=== PATIENT | female | born 2005 | race Caucasian/White ===

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

== ENCOUNTER 2025-03-24 10:20 | Outpatient (CLI) | payer OTHER, SELFPAY ==
--- OUTSIDE RECORDS SUMMARY | 2025-01-27 08:30 | XMS_ITS | Encounter Summary ---
Author Organization Healthcare Address [address] [id number] Care Team Providers Care Poultry Grader Name Role Phone Rick Mae Sam ROQUE Primary Care Provider [phone] Reason for Visit * Reason Comments Routine Visit Feeling well. Has some heartburn. Encounter Details Date Type Department Care Team (Late Contact Info) Description 01/27/2025 8:30 AM EDT Routine Obstetrics & Gynecology [address] [place] [address] Drea Carballo MD [address] [place] [address] 16 weeks gestation of (Primary Dx) Social History Tobacco Use Types Packs/Day Years Used Date Smoking Tobacco: Never Smokeless Tobacco: Never Alcohol Use Standard Drinks/Week Comments Never 0 (1 standard drink = 0.6 oz pur e alcohol) PHQ-2 Answer Date Recorded Patient Health Questionnaire-2 Score 0 01/27/2025 PHQ-9 Answer Date Recorded Patient Health Questionnaire-9 Score 0 01/27/2025 Estimated Date of Delivery Comme nts Yes 07/13/2025 Based on Ultraso und Sex and Gender Information Value Date Recorded Sex Assigned at Not on file Legal Sex Female 8:54 PM EDT Gender Identity Not on file Sexual Orientation Not on file documented as of this encounter Last Filed Vital Signs Vital Sign Reading Time Taken Comments Blood Pressure 95/61 01/27/2025 8:43 AM EDT Pulse 111 01/27/2025 8:43 AM EDT Temperature 36.9 C (98.4 F) 01/27/2025 8:43 AM EDT Respiratory Rate 16 01/27/2025 8:43 AM EDT Oxygen Saturation 98% 01/27/2025 8:43 AM EDT Inhaled Oxygen Concentration - - Weight 64 kg (141 lb 1.5 oz) 01/27/2025 8:43 AM EDT Height 167.6 cm (5' 6 ) 01/27/2025 8:43 AM EDT Body Mass Index 22.77 01/27/2025 8:43 AM EDT documented in this encounter Functional Status * Over the past 2 weeks, how often have you been bothered by any of the following problems? Question Answer Date of Assessment Author Little interest or pleasure in doing things Not at all 01/27/2025 8:45 AM EDT Paulino Mims Feeling down, depressed, or hopeless Not at all 01/27/2025 8:45 AM EDT Paulino Mims Patient Health Questionnaire -2 Score 0 01/27/2025 8:45 AM EDT Paulino Mims * Question Answer Date of Assessment Author Trouble falling or staying a sleep, or sleeping too much Not at all 01/27/2025 8:45 AM EDPaulino Rand Feeling tired or having ashley le energy Not at all 01/27/2025 8:45 AM EDT Paulino Mims Poor appetite or overeating Not at all 01/27/2025 8: 45 AM EDT Paulino Mims Feeling bad about yourself - or that you are a failure or have let yourself or your family down Not at all 01/27/2025 8:45 AM EDT Leonides Mims Trouble concentrating on thi ngs, such as reading the newspaper or watching television Not at all 01/27/2025 8:45 AM EDT Paulino Mims Moving or speaking so slowly that other people could have noticed? Or the opposite - being so fidgety or restless that you have been moving around a lot more than usual. Not at all 01/27/2025 8:45 AM EDPaulino Rand Thoughts that you would be b kennedi off or hurting yourself in some way Not at all 01/27/2025 8:45 AM EDT Paulino Mims Patient Health Questionnaire -9 Score 0 01/27/2025 8:45 AM EDT Paulino Mims * How difficult have these problems made it for you to do your work, take care of things at home, or get along with other people? Answer Date of Assessment Author Not difficult at all 01/27/2025 8:45 AM EDT Paulino Mckee documented as of this encounter Miscellaneous Notes * Progress Notes - Drea Carballo MD - 01/27/2025 8:30 AM EDT Subjective Chief Complaint Patient presents with Routine Visit Feeling well. Has some heartburn. Ana Laura Ambrocio is a 19 y.o. at 16w1d with a working estimated date of delivery of 07/13/2025, by Ultrasound who presents for a routine visit. She denies vaginal bleeding, leakage of fluid, or contractions. No movement yet. 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 Diagnoses and all orders for this visit: 16 weeks gestation of (Primary) Continue vitamin and ASA. Labs reviewed - rh neg, rubella nonimmune NIPT low risk female Discussed tums for GERD Desires delayed cord clamping until cord stops pulsating if able Order placed for anatomy scan at 20 weeks. Follow up in 4 weeks for a routine visit. Time Spent: I personally spent a total of 23 minutes on this encounter. This time includes face to face with patient, counseling and discussion and/or coordination of care. documented in this encounter Plan of Treatment Upcoming Encounters Date Type Department Care Team (Late st Contact Info) Description 04/21/2025 8:15 AM EST Routine [facility] [address] [place] [address] Drea Carballo MD [address] [place] [address] documented as of this encounter Goals Goal Patient Goal Type Associated Problems Recent Progress Patient-Stated? Author Delayed Care Plan CPM S24 PP LABOR (OBSTETRICS) No Open Scheduling, Background documented as of this encounter Visit Diagnoses Diagnosis 16 weeks gestation of - Primary documented in this encounter Additional Health Concerns Active Problems Noted Date Diagnosed Date CPM S24 PP LABOR (OBSTETRICS) 11/24/2024 Assessment Noted Time PHQ-9 Depression Total Score: 0 01/28/20 25 8:45 AM EDT A fall risk assessment has been complete d for the patient 01/27/2025 8:45 AM EDT A Body Mass Index follow-up plan has been documented for the patient 01/27/2025 9:26 AM EDT documented as of this encounter Care Teams Poultry Grader Relationship Specialty Start Date End Date Mae Cabrera PA [address] [place] [address] PCP - General 04/15/24 documented as of this encounter
--- OUTSIDE RECORDS SUMMARY | 2025-02-24 08:00 | XMS_ITS | Encounter Summary ---
Author Organization [facility] Address [address] [place] [address] Care Team Providers Care Bookkeeping Service Sales Agent Name Role Phone Mae Cabrera Primary Care Provider Reason for Visit * Imaging (Routine) - Closed Specialty Diagnoses / Procedures Referred By Cara connor Referred To Contact Diagnoses 12 weeks gestation of Procedures OB US 14+ Weeks Anatomy Scan OB US Detail Anatomy Bianca Moya, POOL COORDINATOR, CNM [address] [facility] [address] [place] [address] Phone: tel: fax: EXT External Clinic [address] [place] [address] Referral ID Status Reason Start Date Expiration Date Visits Re quested Visits Authorized [id number] Closed 12/30/2024 07/01/2026 1 1 Encounter Details Date Type Department Care Team (Latest Contact Info) Description 02/24/2025 8:00 AM EDT - 02/24/2025 11:59 PM EDT Hospital Encounter [facility] [place] [facility] [address] [place] [address] 12 weeks gestation of Discharge Disposition: Home or Self Care Social History Tobacco Use Types Packs/Day Years Used Date Smoking Tobacco: Never Smokeless Tobacco: Never Alcohol Use Standard Drinks/Week Comments Never 0 (1 standard drink = 0.6 oz pur e alcohol) PHQ-2 Answer Date Recorded Patient Health Questionnaire-2 Score 0 02/24/2025 PHQ-9 Answer Date Recorded Patient Health Questionnaire-9 Score 0 01/27/2025 Estimated Date of Delivery Comme nts Yes 07/13/2025 Based on Ultraso und Sex and Gender Information Value Date Recorded Sex Assigned at Not on file Legal Sex Female 8:54 PM EDT Gender Identity Not on file Sexual Orientation Not on file documented as of this encounter Functional Status * Over the past 2 weeks, how often have you been bothered by any of the following problems? Question Answer Date of Assessment Author Little interest or pleasure in doing things Not at all 02/24/2025 9:08 AM EDT Marian Gomez Feeling down, depressed, or hopeless Not at all 02/24/2025 9:08 AM EDT Marian Gomez Patient Health Questionnaire-2 Score 0 02/24/2025 9:08 AM EDT Sheryl Gomez * How difficult have these problems made it for you to do your work, take care of things at home, or get along with other people? Answer Date of Assessment Author Not difficult at all 02/24/2025 9:08 AM EDT Sheryl Clark documented as of this encounter Medications at Time of Discharge aspirin 81 MG EC tabletIndications:Hi story of recurrent miscarriages Take 1 tablet by mouth daily. 30 tablet 11 11/24/2024 ondansetron ODT (Zofran-ODT) 8 MG disintegrating tablet Dissolve 1 tablet on the tongue every 8 hours as needed for nausea or vomiting. 20 tablet 3 11/24/2024 pyridoxine 100 MG tablet Take 1 tablet by mouth daily. documented as of this encounter Plan of Treatment Upcoming Encounters Date Type Department Care Team (Late st Contact Info) Description 04/21/2025 8:15 AM EST Routine [facility] [address] [place] [address] Drea Carballo MD [address] [place] [address] documented as of this encounter Goals Goal Patient Goal Type Associated Problems Recent Progress Patient-Stated? Author Delayed Care Plan CPM S24 PP LABOR (OBSTETRICS) No Open Scheduling, Background documented as of this encounter Procedures Procedure Name Priority Date/Time Associated Diagnosis Comments OB US 14+ WEEKS ANATOMY SCAN Routine 02/24/2025 8:44 AM EDT 12 weeks gestation of documented in this encounter Results * OB US 14+ Weeks Anatomy Scan (02/24/2025 8:44 AM EDT) Anatomical Region Laterality Modality Body Ultrasound 02/24/2025 8:07 AM EDT Impressions 02/24/2025 11:14 PM EDT The OB Ultrasound you requested has been resulted. Please navigate to the Imaging tab in [employer] for review. This message has been generated by the interface. Narrative Procedure Note Maddy Obregon MD - 02/24/2025 IMPRESSION: The OB Ultrasound you requested has been resulted. Please navigate to theImaging tab in [employer] for review. This message has been generated by theinterface. us Bianca Moya APRN, CNM [facility] OB US PROCEDURES Fi nal Result documented in this encounter Visit Diagnoses Diagnosis 12 weeks gestation of documented in this encounter Additional Health Concerns Active Problems Noted Date Diagnosed Date CPM S24 PP LABOR (OBSTETRICS) 11/24/2024 Assessment Noted Time PHQ-9 Depression Total Score: 0 01/28/20 25 8:45 AM EDT A fall risk assessment has been complete d for the patient 02/24/2025 9:08 AM EDT A Body Mass Index follow-up plan has been documented for the patient 02/24/2025 9:28 AM EDT documented as of this encounter Care Teams Bookkeeping Service Sales Agent Relationship Specialty Start Date End Date Mae Cabrera PA [address] [place] [address] PCP - General 04/15/24 documented as of this encounter
--- OUTSIDE RECORDS SUMMARY | 2025-02-24 08:00 | XMS_ITS | Encounter Summary ---
Author Organization Healthcare Address [address] [id number] Care Team Providers Care Liquor Establishment Manager Name Role Phone Mae Cabrera Primary Care Provider [phone] Reason for Visit * Reason Comments Routine Visit No concerns +FM, No CTX , No cramping, No LOF , No VB Encounter Details Date Type Department Care Team (Late st Contact Info) Description 02/24/2025 8:00 AM EDT Routine Obstetrics & Gynecology [address] [place] [address] Bianca Moya, SUPPLY TEACHER, CNM [address] [facility] [address] [place] [address] 20 weeks gestation of (Primary Dx) Social History [...] Sign Reading Time Taken Comments Blood Pressure 107/65 02/24/2025 9:07 AM EDT Pulse 85 02/24/2025 9:07 AM EDT Temperature 36.7 C (98 F) 02/24/2025 9:07 AM EDT Respiratory Rate - - Oxygen Saturation 98% 02/24/2025 9:07 AM EDT Inhaled Oxygen Concentration - - Weight 63.1 kg (139 lb 1.8 oz) 02/24/2025 9:07 A M EDT Height - - Body Mass Index 22.45 01/27/2025 8:43 AM EDT documented in this [...] Sheryl Clark documented as of this encounter Miscellaneous Notes * Progress Notes - Bianca Moya, SUPPLY TEACHER, CNM - 02/24/2025 8:00 AM EDT Subjective Chief Complaint Patient presents with Routine Visit No concerns +FM, No CTX , No cramping, No LOF , No VB Ana Laura Ambrocio is a 19 y.o. at 20w1d with a working estimated date of delivery of 07/13/2025, by Ultrasound who presents for a routine visit. She denies vaginal bleeding, leakage of fluid, or contractions. No movement yet. Doing well, battling allergies. Usually takes Claritin or zyrtec but has not had any due to . Questions about Rhogam Anatomy prelim US today normal per US tech - no printed report available due to printer being down. 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 Continue vitamin and ASA. Labs reviewed - rh neg, rubella nonimmune NIPT low risk female Rhogam at 28 weeks. Discussed allergy meds and safety. Reviewed education classes Desires delayed cord clamping until cord stops pulsating if able Follow up in 4 weeks for a routine visit. documented in this encounter Plan of Treatment Upcoming Encounters Date Type Department Care Team (Late st Contact Info) Description 04/21/2025 8:15 AM EST Routine [facility] [address] [place] [address] Drea Carballo MD [address] [place] [address] documented as of this encounter Goals Goal Patient Goal Type Associated Problems Recent Progress Patient-Stated? Author Delayed Care Plan CPM S24 PP LABOR (OBSTETRICS) No Open Scheduling, Background documented as of this encounter Visit Diagnoses Diagnosis 20 weeks gestation of - Primary documented in [...] documented as of this encounter Care Teams Liquor Establishment Manager Relationship Specialty Start Date End Date Mae Cabrera PA [address] [place] [address] PCP - General 04/15/24 documented as of this encounter
--- OUTSIDE RECORDS SUMMARY | 2025-03-24 08:15 | XMS_ITS | Encounter Summary ---
Author Organization Healthcare Address [address] [id number] Care Team Providers Care Librarian Name Role Phone RickMae Sam ROQUE Primary Care Provider [phone] Reason for Visit * Reason Comments Routine Visit Presents today fo r visit. Encounter Details Date Type Department Care Team (Late Contact Info) Description 03/24/2025 8:15 AM EDT Routine Obstetrics & Gynecology [address] [place] [address] Drea Carballo MD [address] [place] [address] 24 weeks gestation of (Primary Dx) Social History Tobacco Use Types Packs/Day Years Used Date Smoking Tobacco: Never Smokeless Tobacco: Never Alcohol Use Standard Drinks/Week Comments Never 0 (1 standard drink = 0.6 oz pur e alcohol) PHQ-2 Answer Date Recorded Patient Health Questionnaire-2 Score 0 03/24/2025 PHQ-9 Answer Date Recorded Patient Health Questionnaire-9 Score 0 03/24/2025 Estimated Date of Delivery Comme nts Yes 07/13/2025 Based on Ultraso und Sex and Gender Information Value Date Recorded Sex Assigned at Not on file Legal Sex Female 8:54 PM EDT Gender Identity Not on file Sexual Orientation Not on file documented as of this encounter Last Filed Vital Signs Vital Sign Reading Time Taken Comments Blood Pressure 108/70 03/24/2025 8:17 AM EDT Pulse 90 03/24/2025 8:17 AM EDT Temperature 36.6 C (97.9 F) 03/24/2025 8:17 AM EDT Respiratory Rate 16 03/24/2025 8:17 AM EDT Oxygen Saturation 100% 03/24/2025 8:17 AM EDT Inhaled Oxygen Concentration - - Weight 64 kg (141 lb 1.5 oz) 03/24/2025 8:17 AM EDT Height 167.6 cm (5' 6 ) 03/24/2025 8:17 AM EDT Body Mass Index 22.77 03/24/2025 8:17 AM EDT documented in this encounter Functional Status * Over the past 2 weeks, how often have you been bothered by any of the following problems? Question Answer Date of Assessment Author Little interest or pleasure in doing things Not at all 03/24/2025 8:19 AM EDT Paulino Mims Feeling down, depressed, or hopeless Not at all 03/24/2025 8:19 AM EDT Paulino Mims Patient Health Questionnaire -2 Score 0 03/24/2025 8:19 AM EDT Paulino Mims * Question Answer Date of Assessment Author Trouble falling or staying a sleep, or sleeping too much Not at all 03/24/2025 8:19 AM EDPaulino Rand Feeling tired or having ashley le energy Not at all 03/24/2025 8:19 AM EDT Paulino Mims Poor appetite or overeating Not at all 03/24/2025 8: 19 AM EDT Paulino Mims Feeling bad about yourself - or that you are a failure or have let yourself or your family down Not at all 03/24/2025 8:19 AM EDT Leonides Mims Trouble concentrating on thi ngs, such as reading the newspaper or watching television Not at all 03/24/2025 8:19 AM EDT Paulino Mims Moving or speaking so slowly that other people could have noticed? Or the opposite - being so fidgety or restless that you have been moving around a lot more than usual. Not at all 03/24/2025 8:19 AM EDT Paulino Mims Thoughts that you would be b kennedi off or hurting yourself in some way Not at all 03/24/2025 8:19 AM Paulino Sloan Patient Health Questionnaire -9 Score 0 03/24/2025 8:19 AM EDT Paulino Mims * How difficult have these problems made it for you to do your work, take care of things at home, or get along with other people? Answer Date of Assessment Author Not difficult at all 03/24/2025 8:19 AM Paulino Noble * How difficult have these problems made it for you to do your work, take care of things at home, or get along with other people? Answer Date of Assessment Author Not difficult at all 03/24/2025 8:19 AM JUAN FRANCISCOT Paulino Mckee documented as of this encounter Miscellaneous Notes * Progress Notes - Drea Carballo MD - 03/24/2025 8:15 AM EDT Subjective Chief Complaint Patient presents with Routine Visit Presents today for visit. Ana Laura Ambrocio is a 19 y.o. at 24w1d with a working estimated date of delivery of 07/13/2025, by Ultrasound who presents for a routine visit. She denies vaginal bleeding, leakage of fluid, or contractions. Endorses movement. Is having some left sided mouth pain for past 3-4 days - thought tooth pain but went to dentist and all normal. Does have allergies - not taking medication. No fevers. 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 Labs reviewed Discussed okay for allergy medication like claritin, zyrtec, Singulair. Discussed to see PCP Glucola, Tdap, and Rhogam at 28 weeks. Glucola given today Declines flu shot Follow up in 4 weeks for a routine visit. documented in this encounter Plan of Treatment Upcoming Encounters Date Type Department Care Team (Late st Contact Info) Description 04/21/2025 8:15 AM EST Routine [facility] [address] [place] [address] Drea Carballo MD [address] [place] [address] documented as of this encounter Goals Goal Patient Goal Type Associated Problems Recent Progress Patient-Stated? Author Delayed Care Plan CPM S24 PP LABOR (OBSTETRICS) No Open Scheduling, Background documented as of this encounter Visit Diagnoses Diagnosis 24 weeks gestation of - Primary documented in this encounter Additional Health Concerns Active Problems Noted Date Diagnosed Date CPM S24 PP LABOR (OBSTETRICS) 11/24/2024 Assessment Noted Time PHQ-9 Depression Total Score: 0 03/24/20 25 8:19 AM EDT A fall risk assessment has been complete d for the patient 03/24/2025 8:19 AM EDT A Body Mass Index follow-up plan has been documented for the patient 03/24/2025 8:58 AM EDT documented as of this encounter Care Teams Librarian Relationship Specialty Start Date End Date Mae Cabrera PA [address] [place] [address] PCP - General 04/15/24 documented as of this encounter
[2025-03-24 15:59] LABS: Coronavirus 19, PCR Not Detected (NotDetected); Influenza A, PCR Not Detected (NotDetected); Influenza B, PCR Not Detected (NotDetected)
--- OUTSIDE RECORDS SUMMARY | 2025-03-25 02:52 | XMS_ITS | Encounter Summary ---
Author Organization Healthcare Address [address] [id number] Care Team Providers Care Stenographer Print Shop Name Role Phone RickMae Sam ROQUE Primary Care Provider [phone] Encounter Details Date Type Department Care Team (Latest Contact Info) Description 03/17/2025 Travel Social History Tobacco Use Types Packs/Day Years [...] on file documented as of this encounter Plan of Treatment Upcoming Encounters Date Type Department Care Team (Late st Contact Info) Description 04/21/2025 8:15 AM EST Routine Obstetrics [facility] Gynecology [address] [place] [address] Drea Carballo MD [address] [place] [address] documented as of this encounter Goals Goal Patient Goal Type Associated Problems Recent Progress Patient-Stated? Author Delayed Care Plan CPM S24 PP LABOR (OBSTETRICS) No Open Scheduling, Background documented as of this encounter Visit Diagnoses Not on filedocumented in this encounter Additional Health Concerns Active [...] documented as of this encounter Care Teams Stenographer Print Shop Relationship Specialty Start Date End Date Mae Cabrera PA [address] [place] [address] PCP - General 04/15/24 documented as of this encounter
--- OUTSIDE RECORDS SUMMARY | 2025-03-25 02:52 | XMS_ITS | Clinical Summary ---
Author Organization [facility] Address [address] [id number] Care Team Providers Care Medical Billing Specialist Name Role Phone RickMae Sam ROQUE Primary Care Provider [phone] Allergies Active Allergy Reactions Criticality Noted Date Comments Amoxicillin Anaphylaxis High 04/15/2024 Azithromycin Anaphylaxis High 11/20/2023 Cefdinir Anaphylaxis High 11/20/2023 Clindamycin Hives Medium 11/20/2023 Penicillins Anaphylaxis High 11/20/2023 Sulfa Drugs Hives Medium 04/15/2024 Medications pyridoxine 100 MG tablet Take 1 tablet by mouth daily. Active ondansetron ODT (Zofran-ODT) 8 MG disintegrating tablet Dissolve 1 tablet on the tongue every 8 hours as needed for nausea or vomiting. 20 tablet 3 5 Active aspirin 81 MG EC tabletIndications:H istory of recurrent miscarriages Take 1 tablet by mouth daily. 30 tablet 11 5 Active Active Problems Problem Noted Date Diagnosed Date 24 weeks gestation of 11/24/2024 Assessment & Plan (11/24/2024 3:17 PM EDT): Orders: US Pelvis Transvaginal; Future Urine Culture Type and Screen Treponema Pallidum (Syphilis) Antibodies with Reflex to RPR and RPR Titer (Those with NO known Syphilis) Rubella Antibody IgG POCT Urine POCT Urinalysis Dipstick Neisseria gonorrhea DNA by PCR HIV 1 & 2 Antibody/Antigen Screen w/Reflex to HIV 1/2 Differentiation Hepatitis C Antibody w/Reflex to HCV Quant PCR Hepatitis B Surface Antigen Drug Abuse Screen, Urine Chlamydia trachomatis DNA by PCR CBC W/O Differential OB US Nuchal Translucency; Future promethazine (Phenergan) 12.5 MG tablet; Take 1 tablet by mouth every 4 hours. 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 Estimated Date of Delivery Comme nts Yes 07/13/2025 Based on Ultraso und Encounters Date Type Department Care Team Description 03/24/2025 8:15 AM EDT Routine Obstetrics & Gynecology [address] [place] [address] Drea Carballo MD 24 weeks gestation of (Primary Dx) 03/24/2025 Travel 03/21/2025 Telephone Obstetrics & Gynecology [address] [place] [address] Drea Carballo MD HCN Clinical Concern/Question (Documentation ) 03/17/2025 Travel 02/24/2025 8:00 AM EDT Routine Obstetrics & Gynecology [address] [place] [address] Bianca Moya, DAMON, CNM 20 weeks gestation of (Primary Dx) 02/24/2025 8:00 AM EDT - 02/24/2025 11:59 PM EDT Hospital Encounter [facility] [address] [place] [address] 12 weeks gestation of Discharge Disposition: Home or Self Care 02/24/2025 Travel 02/23/2025 Travel 01/27/2025 8:30 AM EDT Routine Obstetrics & Gynecology [address] [place] [address] Drea Carballo MD 16 weeks gestation of (Primary Dx) 01/27/2025 Travel 01/20/2025 Travel 01/05/2025 Results Follow-Up Obstetrics & Gynecology [address] [place] [address] Bianca Moya APRN, CNM 12/30/2024 8:40 AM EDT Routine Obstetrics & Gynecology [address] [place] [address] Bianca Moya APRN, CNM 12 weeks gestation of (Primary Dx); Encounter for supervision of other normal , first trimester 12/30/2024 8:12 AM EDT - 12/30/2024 11:59 PM EDT Hospital Encounter [facility] [address] [place] [address] state, incidental Discharge Disposition: Home or Self Care 12/30/2024 Travel 12/29/2024 Travel 12/29/2024 Telephone Obstetrics & Gynecology [address] [place] [address] Bianca Moya APRN, CNM from Last 3 Months Family History Medical [...] Mass Index 22.77 03/24/2025 8:17 AM EDT Plan of Treatment Upcoming Encounters Date Type Department Care Team (Late st Contact Info) Description 04/21/2025 8:15 AM EST Routine Obstetrics & Gynecology [address] [place] [address] Drea Carballo MD [address] [place] [address] Health Maintenance Due Date Last Done Comments [facility]-/Child/Adol SDOH Screenings 2005 Fluoride Varnish 01/15/2006 [facility]-Varicella Vaccines (2 of 2 - 2-dose childhood series) 2009 11/18/2006 [facility]-DTaP,Tdap,and Td Vaccines (6 - Tdap) 2016 07/12/2009, 11/18/2006, 2005, Additional history exists [facility]-Hepatitis A Vaccines (2 of 2 - 2-dose series) 10/12/2018 04/13/2018 HPV Vaccines (1 - 3-dose series) 2020 [facility]- SDOH Screenings 2023 [facility]-Adult SDOH Screenings 2023 [facility]-Pneumococcal Vaccine: Pediatrics (0 to 5 Years) and At-Risk Patients (6 to 49 Years) (1 of 2 - PCV) 2024 07/12/2009, 11/18/2006, 2005, Additional history exists AGH-RSHEX-61 Vaccine (1 - season) 2025 [facility]-Influenza Vaccine (#1) 2025 [facility]-RSV Vaccine: 60+ Years or (1 - Risk 1-dose series) 05/18/2025 [facility]-Chlamydia and Gonorrhea Screening 11/24/2025 11/24/2024, 11/24/2024 [facility]-Depression Screening 03/24/2026 03/24/2025, 02/2025 [facility]-Zoster Vaccines (1 of 2) 2055 11/18/2006 [facility]-HIB Vaccines Completed 11/18/2006, , 2005, Additional history exists [facility]-Hepatitis B Vaccines Completed 007, 2005, 2005 [facility]-IPV Vaccines Completed 07/12/2009, , 2005, Additional history exists [facility]-HIV Screening Completed 11/24/2024 [facility]-Hepatitis C Screening Completed 11/24/2024 [facility]-Rotavirus Vaccines Aged Out No lo nger eligible based on patient's age to complete this topic Goals Goal Patient Goal Type Associated Problems Recent Progress Patient-Stated? Author Delayed Care Plan CPM S24 PP LABOR (OBSTETRICS) No Open Scheduling, Background Procedures Procedure Name Priority Date/Time Associated Diagnosis Comments OB US 14+ WEEKS ANATOMY SCAN Routine 02/24/2025 8:44 AM EDT 12 weeks gestation of PANORAMA TEST Routine 9:44 AM EDT Encounter for supervision of other normal , first trimester HORIZON 14 (GARCES-ETHNIC STANDARD) Routine 12/30/2024 9:44 AM EDT Encounter for supervision of other normal , first trimester OB US NUCHAL TRANSLUCENCY Routine 12/30/2024 8:38 AM EDT state, incidental HEPATITIS C ANTIBODY W/REFLEX TO HCV QUANT PCR Routine 11/24/2024 2:59 PM EDT state, incidental HIV 1/2 ANTIBODY/ANTIGEN SCREEN WITH REFLEX TO HIV I/II DIFFERENTIATION Routine 11/24/2024 2:59 PM EDT state, incidental CHLAMYDIA TRACHOMATIS DNA BY PCR Routine 11/24/2024 2:59 PM EDT state, incidental from Last 3 Months or Most Recently Relevant to Health Maintenance Results * OB US 14+ Weeks Anatomy Scan (02/24/2025 8:44 AM EDT) Anatomical Region Laterality Modality Body Ultrasound 02/24/2025 8:07 AM EDT Impressions 02/24/2025 11:14 PM EDT The OB Ultrasound you requested has been resulted. Please navigate to the Imaging tab in [employer] for review. This message has been generated by the interface. Narrative Procedure Note Maddy Obregon MD - 02/24/2025 IMPRESSION: The OB Ultrasound you requested has been resulted. Please navigate to theImaging tab in [employer] for review. This message has been generated by theinterface. us Bianca Moya APRN, CNM IMJoseph OB US PROCEDURES Fi nal Result * Horizon 14 (Garces-Ethnic Standard) (12/30/2024 9:44 AM EDT) REPORT SUMMARY Negative 01/06/2025 5:48 PM EDT [facility] Comment:Negative for 14 out of 14 diseases. ALPHA-THALASSEMIA Negative 025 5:48 PM EDT [facility] BETA-HEMOGLOBINOP ATHIES Negative 01/06/2025 5:48 PM EDT [facility] AYAN DISEASE Negative 5 5:48 PM EDT [facility] CYSTIC FIBROSIS Negative 5:48 PM EDT [facility] DUCHENNE/COELLO MUSCULAR DYSTROPHY Negative 01/06/2025 5:48 PM EDT [facility] FAMILIAL DYSAUTONOMIA Negative 01/06/2025 5:48 PM EDT [facility] FRAGILE X SYNDROME Negative 01/06/2025 5:48 PM EDT [facility] Comment: NEGATIVE Fragile X Syndrome (X-linked) results 30 and 30 CGG repeats were detected in the FMR1 genes. GALACTOSEMIA Negative 01/06/2025 5:48 PM EDT [facility] GAUCHER DISEASE Negative 5:48 PM EDT [facility] MEDIUM CHAIN ACYL-COA DEHYDROGENASE DEFICIENCY Negative 01/06/2025 5:48 PM EDT [facility] POLYCYSTIC KIDNEY DISEASE AUTOSOMAL RECESSIVE Negative 01/06/2025 5:48 PM EDT [facility] GQMAK-PSPQY-ZLWTA SYNDROME Negative 01/06/2025 5:48 PM EDT [facility] SPINAL MUSCULAR ATROPHY Negative 01/06/2025 5:48 PM EDT [facility] Comment: NEGATIVE Spinal Muscular Atrophy (SMA) Results SMN1: Two copies; g.[id number]>G: absent; the absence of the g.95049P>G variant decreases the chance to be a silent (2+0) carrier. EMIGDIO-SACHS DISEASE Negative 025 5:48 PM EDT [facility] PANEL NOTES See Notes 01/06/2025 5:48 PM EDT [facility] REPORT NOTE See Notes 01/06/2025 5:48 PM EDT [facility] FOOTNOTES See Notes 01/06/2025 5:48 PM EDT [facility] Comment: Please see the attached PDF for information regarding Conditions, Methodology, Disclaimers, and further information. Test performed by [employer]. : [address] [facility], [address], [address], [place] [address] CLIA ID #[id number] CLIA Molding Supervisor: Amy Peck, Ph.D., [facility] Blood Venous blood specimen / Unknown Venipuncture / Unknown 12/30/2024 9:44 AM EDT 12/30/2024 9:45 AM EDT us Bianca Shauna Moya CONCRETE PLANT LABORER, CNM [facility] ORDERABLES Final Result [facility] [address] [place] [address], * PANORAOH TEST (12/30/2024 9:44 AM EDT) REPORT SUMMARY LOW RISK 01/05/2025 7:29 AM EDT [facility] Comment:LOW RISK REPORT NOTE See Notes 01/05/2025 7:29 AM EDT [facility] SEX OF FETUS Female 2024 7:29 AM EDT [facility] FRACTION2 17.3% 7:29 AM EDT [facility] TRISOMY 21 RESULT TEXT Low Risk 01/05/2025 7:29 AM EDT [facility] TRISOMY 21 AGE-BASED RISK TEXT 06/16,068 (0.09%) 01/05/2025 7:29 AM EDT [facility] TRISOMY 21 RISK SCORE TEXT <1/10,000 (<0.01%) 01/05/2025 7:29 AM EDT [facility] TRISOMY 18 RESULT TEXT Low Risk 01/05/2025 7:29 AM EDT [facility] TRISOMY 18 AGE-BASED RISK TEXT 2,484 (0.04%) 01/05/2025 7:29 AM EDT [facility] TRISOMY 18 RISK SCORE TEXT <1/10,000 (<0.01%) 01/05/2025 7:29 AM EDT [facility] TRISOMY 13 RESULT TEXT Low Risk 01/05/2025 7:29 AM EDT [facility] TRISOMY 13 AGE-BASED RISK TEXT 17,826 (0.01%) 01/05/2025 7:29 AM EDT [facility] TRISOMY 13 RISK SCORE TEXT <1/10,000 (<0.01%) 01/05/2025 7:29 AM EDT [facility] MONOSOMY X RESULT TEXT Low Risk 01/05/2025 7:29 AM EDT [facility] MONOSOMY X AGE-BASED RISK TEXT 1255 (0.39%) 01/05/2025 7:29 AM EDT [facility] MONOSOMY X RISK SCORE TEXT <1/10,000 (<0.01%) 01/05/2025 7:29 AM EDT [facility] TRIPLOIDY RESULT TEXT Low Risk 7:29 AM EDT [facility] 22Q11.2 DELETION SYNDROME RESULT TEXT Low Risk 01/05/2025 7:29 AM EDT [facility] 22Q11.2 DELETION SYNDROME POPULATION-BASED RISK TEXT 12,000 01/05/2025 7:29 AM EDT [facility] 22Q11.2 DELETION SYNDROME RISK SCORE TEXT 1201/05/2025 7:29 AM EDT [facility] FOOTNOTES See Notes 01/05/2025 7:29 AM EDT [facility] Comment: Testing Methodology DNA isolated from maternal blood, which contains placental DNA, is amplified at specific loci using a targeted PCR assay and is sequenced using a high- throughput sequencer. fraction is determined using a proprietary algorithm incorporating data from single nucleotide polymorphism-based (SNP-based) next-generation sequencing [Madhu E et al. Obstet Gynecol. 2014 Jan;124(2 Pt 1):210-8]. If there is sufficient fraction, sequencing data is analyzed using a proprietary SNP- based algorithm to determine the copy number for chromosomes 13, 18, 21, X and Y. If ordered, specific microdeletions will be evaluated using similar methodology [Meagan GROVER et al. Am J Obstet Gynecol. 2015 Aug;212(3):332.e1-9]. If the fraction is insufficient, an additional algorithm to determine whether there is an increased risk for triploidy, trisomy 18, and trisomy 13 may be utilized, known as fraction based risk assessment (FFBR) [Dharmesh et al. Ultrasound Obstet Gynecol 2019; 53:73-79]. If ordered on a vanishing twin , a proprietary analysis will be performed to differentiate between the viable/living fetus and the vanished fetus to allow for risk assessment of copy number of chromosomes 13,18, 21, X, Y, and specific microdeletions in the viable/living twin using the above described SNP- based algorithm. If ordered, and patient is RHD negative by genotype, RHD status will be evaluated using a proprietary algorithm if fraction is sufficient [Dima Hurst et al. Obstet Gynecol 2023;145:1?7]. However, some samples will not produce a result due to failure to meet the necessary quality thresholds. This test has been validated on women with a jerome, twin, vanishing twin, or egg donor of at least nine weeks gestation. A result will not be available for higher order multiples and multiple gestation pregnancies with an egg donor or surrogate, or bone marrow transplant recipients. Complete test panel is not available for twin gestations and pregnancies achieved with an egg donor or surrogate. For twin pregnancies with a fraction value below the threshold for analysis, a sum of the fractions for both twins will be reported. As this assay is a screening test and not diagnostic, false positives and false negatives can occur. High risk test results need diagnostic confirmation by alternative testing methods. Low risk results do not fully exclude the diagnosis of any of the syndromes nor do they exclude the possibility of other chromosomal abnormalities or defects, which are not a part of this test. Potential sources of inaccurate results include, but are not limited to, mosaicism, low fraction, limitations of current diagnostic techniques, or misidentification of samples. This test will not identify all deletions associated with each microdeletion syndrome. This test has been validated for deletions ?0.5 Mb within the 22q11.2 A-D region. This test has been validated on full region deletions only for 1p36 deletion syndrome, Cri-du-chat syndrome, Prader Willi syndrome and Angelman syndrome and may be unable to detect smaller deletions. Microdeletion risk score may be dependent upon fraction, as deletions on the maternally inherited copy are difficult to identify at lower fractions. Test results should always be interpreted by a clinician in the context of clinical and familial data with the availability of genetic counseling when appropriate. Disclaimers The extraction, library preparation, and sequencing of this test were performed by [employer] [id number] [place] [address] [address], [place] [address] (CLIA ID [id number]). The data analysis and reporting of this test were performed by [employer] [address] [facility] [facility] [address], [place] [address] (CLIA ID [id number]). The performance characteristics of this test were developed by [employer].(CLIA ID [id number]). This test has not been cleared or approved by the U.S. Food and Drug Administration (FDA). These laboratories are regulated under CLIA as qualified to perform high-complexity testing. 2024 [employer]. All Rights Reserved. Please refer to the attached PDF report Reviewed By: Latonia Vo M.D., Ph.D., [facility], Senior Social And Human Services Assistant CLIA Molding Supervisor: Amy Peck, Ph.D., [facility] IF THE ORDERING PROVIDER HAS QUESTIONS OR WISHES TO DISCUSS THE RESULTS, PLEASE CONTACT US AT [phone] #[phone]. Ask for the [facility] [[email or web address]]T genetic counselor biofuels operations manager. Blood Venous blood specimen / Unknown Venipuncture / Unknown 12/30/2024 9:44 AM EDT 12/30/2024 9:45 AM EDT us Bianca Moya APRN, CNM [facility] ORDER[facility] Final Result Performing Organization Address City/State/[facility] Co de Phone Number [facility] [address] [place] [address], [place] * OB US Nuchal Translucency (12/30/2024 8:38 AM EDT) Anatomical Region Laterality Modality Ultrasound 12/30/2024 8:19 AM EDT Impressions 12/30/2024 9:20 AM EDT The OB Ultrasound you requested has been resulted. Please navigate to the Imaging tab in [employer] for review. This message has been generated by the interface. Narrative Procedure Note Sruthi Urena MD - 12/30/2024 IMPRESSION: The OB Ultrasound you requested has been resulted. Please navigate to theImaging tab in [employer] for review. This message has been generated by theinterface. us Drea Carballo MD IMG OB US PROCEDURES Fin al Result * Chlamydia trachomatis DNA by PCR (11/24/2024 2:59 PM EDT) Chlamydia trachomatis DNA PCR Result Not Detected Not Detected 11/25/2024 12:57 PM EDT [facility] Urine Urine specimen / Unknown Non-blood Collection / Unknown 11/24/2024 2:59 PM EDT 11/24/2024 6:41 PM EDT Narrative [facility] - 11/25/2024 12:57 PM EDT This test is performed by the [employer] m2000 instrument for Real Time PCR C. trachomatis and N. gonorrhea. This test is FDA approved for use with endocervical, vaginal, and urine specimens. This test is used for clinical purposes. It should not be regarded as invesigational or for research. The [facility] Microbiology [facility] is certified under the Clinical Laboratory Improvement Amendments of 1988 (CLIA-88) as qualified to perform high complexity clinical laboratory testing. Drea Carballo MD LAB MICROBIOLOGY - GENER AL ORDERABLES Final Result Performing Organization Address City/[facility]/ZIP Co de Phone Number [facility] [address] [place] [address] * HIV 1 & 2 Antibody/Antigen Screen (11/24/2024 2:59 PM EDT) Pathologist [facility] HIV 1 & 2 Antibody/Antigen Screen Non Reactive Non Reactive 11/24/2024 7:20 PM EDT [facility] Comment:Screening for HIV 1 & 2 antibodies, and P24 antigen is NONREACTIVE. No confirmatory testing is required. Blood Venous blood specimen / Unknown Venipuncture / Unknown 11/24/2024 2:59 PM EDT 11/24/2024 6:39 PM EDT Drea Carballo MD LAB BLOOD ORDERABLES Fin al Result Performing Organization Address City/[facility]/ZIP Co de Phone Number [facility] [address] [place] [address] * Hepatitis C Antibody w/Reflex to HCV Quant PCR (11/24/2024 2:59 PM EDT) Hepatitis C Antibody Negative Negative 11/24/2024 7:19 PM EDT [facility] Blood Venous blood specimen / Unknown Venipuncture / Unknown 11/24/2024 2:59 PM EDT 11/24/2024 6:39 PM EDT us Drea Carballo MD LAB BLOOD ORDERABLES Fin al Result [facility] [address] [place] [address] from Last 3 Months or Most Recently Relevant to Health Maintenance Additional Health Concerns Active Problems Noted Date Diagnosed Date CPM S24 PP LABOR (OBSTETRICS) 11/24/2024 [facility] Care Teams Medical Billing Specialist Relationship Specialty Start Date End Date Mae Cabrera PA [address] [place] [address] PCP - General 04/15/24
--- OUTSIDE RECORDS SUMMARY | 2025-03-25 02:52 | XMS_ITS | Encounter Summary ---
Author Organization Healthcare Address [address] [id number] Care Team Providers Care Ankle Patch Molder Name Role Phone Gaviota Cabreraie Sam ROQUE Primary Care Provider [phone] Encounter Details Date Type Department Care Team (Latest Contact Info) Description 02/24/2025 Travel Social History Tobacco Use Types Packs/Day [...] Sheryl Clark documented as of this encounter Plan of Treatment Upcoming Encounters Date Type Department Care Team (Late st Contact Info) Description 04/21/2025 8:15 AM EST Routine [facility] [address] [place] [address] Drea Carballo MD [address] [place] [address] documented as of this encounter [...] documented as of this encounter Care Teams Ankle Patch Molder Relationship Specialty Start Date End Date Mae Cabrera PA [address] [place] [address] PCP - General 04/15/24 documented as of this encounter
--- OUTSIDE RECORDS SUMMARY | 2025-03-25 02:52 | XMS_ITS | Encounter Summary ---
Author Organization Healthcare Address [address] [id number] Care Team Providers Care Shift Superintendent Caustic Cresylate Name Role Phone Mae Cabrera Primary Care Provider [phone] Encounter Details Date Type Department Care Team (Late st Contact Info) Description 01/05/2025 Results Follow-Up Obstetrics & Gynecology [address] [place] [address] Bianca Moya, MOTOR COACH CHAUFFEUR, CNM [address] [facility] [address] [place] [address] Social History Tobacco Use Types [...] 02/24/2025 9:08 AM EDT Sheryl Gomez * Question Answer Date of Assessment Author Trouble falling or staying a sleep, or sleeping too much Not at all 01/27/2025 8:45 AM EDT Paulino Mmis Feeling tired or having ashley le energy [...] usual. Not at all 01/27/2025 8:45 AM EDT Paulino Mims Thoughts that you [...] AM EST Routine Obstetrics & Gynecology [address] [place] [address] Drea Carballo MD [address] [place] [address] documented as of this encounter Goals Goal Patient Goal Type Associated Problems Recent Progress Patient-Stated? Author Delayed Care Plan CPM S24 PP LABOR (OBSTETRICS) No Open Scheduling, Background documented as of this encounter Visit Diagnoses Not on filedocumented in this encounter Additional Health Concerns Active Problems Noted Date Diagnosed Date CPM S24 PP LABOR (OBSTETRICS) 11/24/2024 Assessment Noted Time A fall risk assessment has been complete d for the patient 12/30/2024 8:49 AM EDT A Body Mass Index follow-up plan has been documented for the patient 12/30/2024 8:58 AM EDT documented as of this encounter Care Teams Shift Superintendent Caustic Cresylate Relationship Specialty Start Date End Date Mae Cabrera PA [address] [place] [address] PCP - General 04/15/24 documented as of this encounter
--- OUTSIDE RECORDS SUMMARY | 2025-03-25 02:52 | XMS_ITS | Encounter Summary ---
Author Organization Healthcare Address [address] [id number] Care Team Providers Care Slab Lifting Supervisor Name Role Phone RickMae Sam ROQUE Primary Care Provider [phone] Encounter Details Date Type Department Care Team (Late st Contact Info) Description 11/26/2024 Results Follow-Up Obstetrics & Gynecology [address] [place] [address] Drea Carballo MD [address] [place] [address] Social History Tobacco Use Types [...] pleasure in doing things Not at all 12/30/2024 8:48 AM EDT Marian Gomez Feeling down, depressed, or hopeless Not at all 12/30/2024 8:48 AM EDT Marian Gomez Patient Health Questionnaire-2 Score 0 12/30/2024 8:48 AM EDT Sheryl Gomez * How difficult have these problems made it for you to do your work, take care of things at home, or get along with other people? Answer Date of Assessment Author Not difficult at all 12/30/2024 8:48 AM EDT Shep Sheryl Barreto documented as of this encounter Plan of Treatment Upcoming Encounters Date Type Department Care Team (Late st Contact Info) Description 04/21/2025 8:15 AM EST Routine [facility] [address] [place] [address] Drea Carballo MD [address] [place] [address] documented as of this encounter Goals Goal Patient Goal Type Associated Problems Recent Progress Patient-Stated? Author Delayed Care Plan CPM S24 PP LABOR (OBSTETRICS) No Open Scheduling, Background documented as of this encounter Visit Diagnoses Diagnosis Cystitis- Primary Unspecified cystitis documented in this encounter Additional Health Concerns Active Problems Noted Date Diagnosed Date CPM S24 PP LABOR (OBSTETRICS) 11/24/2024 Assessment Noted Time A fall risk assessment has been complete d for the patient 08/25/2024 1:15 PM EDT A Body Mass Index follow-up plan has been documented for the patient 11/24/2024 3:08 PM EDT documented as of this encounter Care Teams Slab Lifting Supervisor Relationship Specialty Start Date End Date Mae Cabrera PA [address] [place] [address] PCP - General 04/15/24 documented as of this encounter
--- OUTSIDE RECORDS SUMMARY | 2025-03-25 02:52 | XMS_ITS | Encounter Summary ---
Author Organization Healthcare Address [address] [id number] Care Team Providers Care Coiled Tubing Operator Name Role Phone RickMae Sam ROQUE Primary Care Provider [phone] Reason for Visit * Reason Onset Date Comments [facility] Clinical Concern/Question 03/21/2025 Do cumentation Encounter Details Date Type Department Care Team (Late st Contact Info) Description 03/21/2025 Telephone Obstetrics & Gynecology [address] [place] [address] Drea Carballo MD [address] [place] [address] [facility] Clinical Concern/Question (Documentation ) Social History Tobacco Use Types Packs/Day Years [...] things Not at all 03/24/2025 8:19 AM Paulino Sloan Feeling down, depressed, or hopeless Not at all 03/24/2025 8:19 AM Paulino Sloan Patient Health Questionnaire -2 Score 0 03/24/2025 8:19 AM Paulino Sloan * Question Answer Date of Assessment Author Trouble falling or staying a sleep, or sleeping too much Not at all 03/24/2025 8:19 AM EDPaulino Rand Feeling tired or having ashley le energy Not at all 03/24/2025 8:19 AM EDT Paulino Mims Poor appetite or overeating Not at all 03/24/2025 8: 19 AM EDPaulino Rand Feeling bad about yourself - or that you are a failure or have let yourself or your family down Not at all 03/24/2025 8:19 AM Leonides Sloan Trouble concentrating on thi ngs, such as reading the newspaper or watching television Not at all 03/24/2025 8:19 AM EDPaulino Rand Moving or speaking so slowly that other people could have noticed? Or the opposite - being so fidgety or restless that you have been moving around a lot more than usual. Not at all 03/24/2025 8:19 AM Paulino Sloan Thoughts that you would be b kennedi off or hurting yourself in some way Not at all 03/24/2025 8:19 AM Paulino Sloan Patient Health Questionnaire -9 Score 0 03/24/2025 8:19 AM Paulino Sloan * How difficult have these problems made [...] at all 03/24/2025 8:19 AM Paulino Noble documented as of this encounter Miscellaneous Notes * Telephone Encounter - Sondra Webb - 03/21/2025 2:06 PM EDT Paperwork/Documentation Request Patient Name: Ana Laura Ambrocio Type: Documentation saying she can e treated for her bad tooth with a cavity. Patient is scheduled for 03/24/2025. Due Date: 03/21/2025 Send To: please call to advise. Best contact number: [phone] (home) Optimal time of day to reach caller: ANYTIME Additional comments/information from caller: Please call to advise. Note: Please do not reply to this message. Follow-up communication and further actions as a result of this message need to be communicated with the patient directly, if the patient is not active onMyChart. If the patient is active on MyChart, they will receive notification of the communication/outcome via Acceptdhart. documented in this encounter Plan of Treatment Upcoming Encounters Date Type Department Care Team (Late st Contact Info) Description 04/21/2025 8:15 AM EST Routine [facility] [address] [place] [address] Drea Carballo MD [address] [place] [address] documented as of this encounter [...] documented as of this encounter Care Teams Coiled Tubing Operator Relationship Specialty Start Date End Date Mae Cabrera PA [address] [place] [address] PCP - General 04/15/24 documented as of this encounter
--- OUTSIDE RECORDS SUMMARY | 2025-03-25 02:53 | XMS_ITS | Encounter Summary ---
Author Organization [facility] Address [address] [id number] Care Team Providers Care Barber Or Beauty Shop Manager Name Role Phone Mae Cabrera Primary Care Provider [phone] Encounter Details Date Type Department Care Team (Latest Contact Info) Description 03/24/2025 Travel Social History Tobacco Use Types Packs/Day [...] energy Not at all 03/24/2025 8:19 AM EDPaulino Rand Poor appetite or overeating Not at all 03/24/2025 8: 19 AM EDPaulino Rand Feeling bad about yourself - or that you are a failure or have let yourself or your family down Not at all 03/24/2025 8:19 AM EDLeonides Rand Trouble concentrating on thi ngs, such as [...] 03/24/2025 8:19 AM JUAN FRANCISCOT Paulino Mckee * How difficult have these problems made it for you to do your work, take care of things at home, or get along with other people? Answer Date of Assessment Author Not difficult at all 03/24/2025 8:19 AM Paulino Noble documented as of this encounter Plan of Treatment Upcoming Encounters Date Type Department Care Team (Late st Contact Info) Description 04/21/2025 8:15 AM EST Routine [facility] [address] [place] [address] Drea Carballo MD [address] [place] [address] documented as of this encounter [...] documented as of this encounter Care Teams Barber Or Beauty Shop Manager Relationship Specialty Start Date End Date Mae Cabrera PA [address] [place] [address] PCP - General 04/15/24 documented as of this encounter
--- OUTSIDE RECORDS SUMMARY | 2025-03-25 02:53 | XMS_ITS | Encounter Summary ---
Author Organization Healthcare Address [address] [id number] Care Team Providers Care Mains And Service Supervisor Name Role Phone RickMae Sam ROQUE Primary Care Provider [phone] Encounter Details Date Type Department Care Team (Latest Contact Info) Description 02/23/2025 Travel Social History Tobacco Use Types Packs/Day [...] AM EST Routine Obstetrics & Gynecology [address] [place] [address] Drea Carballo MD [address] [place] [address] documented as of this encounter [...] documented as of this encounter Care Teams Mains And Service Supervisor Relationship Specialty Start Date End Date Mae Cabrera PA [address] [place] [address] PCP - General 04/15/24 documented as of this encounter
--- OUTSIDE RECORDS SUMMARY | 2025-03-25 02:53 | XMS_ITS | Encounter Summary ---
Author Organization [facility] Address [address] [id number] Care Team Providers Care Breaker Machine Tender Name Role Phone Mae Cabrera Primary Care Provider [phone] Encounter Details Date Type Department Care Team (Latest Contact Info) Description 01/27/2025 Travel Social History Tobacco Use Types Packs/Day [...] 01/27/2025 8:45 AM EDT Paulino Mims Feeling tired or having ashley le energy [...] Paulino Mckee documented as of this encounter Plan of Treatment Upcoming Encounters Date Type Department Care Team (Late st Contact Info) Description 04/21/2025 8:15 AM EST Routine [facility] [address] [place] [address] Drea Carballo MD [address] [place] [address] documented as of this encounter [...] documented as of this encounter Care Teams Breaker Machine Tender Relationship Specialty Start Date End Date Mae Cabrera PA [address] [place] [address] PCP - General 04/15/24 documented as of this encounter
== END 2025-03-24 23:59 ==
LOC: LAB.DROPOF 03-25 02:51
PROVIDERS: PCP Student in an Organized Health Care Education/Training Program; Visit Provider Student in an Organized Health Care Education/Training Program
DX: J06.9 Acute upper respiratory infection, unspecified (principal)
CPT/HCPCS: 87631

== ENCOUNTER 2025-05-18 08:41 | Outpatient (CLI) | payer OTHER, SELFPAY ==
[2025-05-18 21:17] LABS: Coronavirus 19, PCR Not Detected (NotDetected); Influenza A, PCR Not Detected (NotDetected); Influenza B, PCR Not Detected (NotDetected)
== END 2025-05-18 23:59 ==
LOC: LAB.DROPOF 05-20 08:41
PROVIDERS: PCP Physician Assistant; Visit Provider Student in an Organized Health Care Education/Training Program
DX: J02.9 Acute pharyngitis, unspecified (principal); R50.9 Fever, unspecified
CPT/HCPCS: 87631